=== PATIENT | male | born 1965 | race Caucasian/White ===

== ENCOUNTER 2022-12-27 00:57 | Emergency (ER) | payer MEDICARE, MEDICAID ==
[~2022-12-27] VITALS: Ht 167.6 cm; Wt 91.0 kg
[~2022-12-27 00:57] MED LIST: ASPI-1497 PO; ATOR-2 PO; ERTU5TAB PO; EZET10TA13 PO; FURO40TA5 PO; GEMF600T90 PO; METO-385 PO; METO5TAB7 PO; POTA-205 PO; SACU1TAB PO; SEMA1PEN SQ
[2022-12-27] MEDS ORDERED: IBUPROFEN 800MG TABLET PO ONE (04:00)
[2022-12-27] MEDS ORDERED: IBUP-2029 PO (05:21)
[2022-12-27 05:28] VITALS: BP 134/85
== END 2022-12-27 05:30 | disposition home or self-care (01) ==
LOC: ER 00:58
DX: M17.11 Unilateral primary osteoarthritis, right knee (principal); E11.9 Type 2 diabetes mellitus without complications; I11.0 Hypertensive heart disease with heart failure; I50.9 Heart failure, unspecified; Z79.899 Other long term (current) drug therapy; Z98.890 Other specified postprocedural states
CPT/HCPCS: 73562; 99283